=== PATIENT | female | born 1965 | race American Indian/Alaskan Native ===

== ENCOUNTER 2016-06-11 08:40 | Outpatient (CLI) | payer MEDICARE ==
--- NOTE | 2016-06-11 09:20 | Mammography Report ---
RIGHT DIGITAL DIAGNOSTIC MAMMOGRAM with CAD: 06/11/16 08:40:00 CLINICAL: Six-month followup status post benign surgical excision. COMPARISON:12/11/15 FINDINGS: Since the last exam, a surgical excision has been performed with removal of the localizer clip.Moderate scar at the surgical site. Central lucency within the scar. No mass or calcifications. IMPRESSION: Benign scar status post benign surgical excision. BI-RADS CATEGORY: 2 - - Benign RECOMMENDATION: Routine mammographic screening. ACR BI-RADS MAMMOGRAPHIC CODES: 0 = Needs additional imaging evaluation; 1 = Negative; 2 = Benign; 3 = Probably benign; 4 = Suspicious; 5 = Malignant; 6 = Known biopsy-proven malignancy COMMENT: 1. Dense breast tissue, i.e., adenosis, fibrocystic changes, etc., may obscure an underlying neoplasm. 2. Approximately 10% of cancers are not detected with mammography. 3. A negative mammography report should not delay biopsy if a clinically suspicious mass is present. COMMENT: Patient follow-up letters are generated by our [employer] application.
== END 2016-06-11 08:41 | disposition home or self-care (01) ==
LOC: SPVWC 08:40
PROVIDERS: ATTEND Surgery
DX: R92.8 Other abnormal and inconclusive findings on diagnostic imaging of breast (principal)
CPT/HCPCS: G0206-RT

== ENCOUNTER 2017-08-22 19:21 | Emergency (ER) | payer MEDICARE ==
[2017-08-22 20:39] LABS: Basophils # (Auto) 0.1 K/mm3 (0.0-0.1); Basophils % (Auto) 0.7 % (0.0-1.8); Eosinophils # (Auto) 0.2 K/mm3 (0.0-0.4); Eosinophils % (Auto) 2.1 % (0.0-4.3); Hematocrit 37.6 % (30.3-42.9); Hemoglobin 12.7 gm/dl (10.1-14.3); Lymphocytes # (Auto) 2.6 K/mm3 (1.2-5.4); Lymphocytes % (Auto) 36.5 % (13.4-35.0); Mean Corpuscular HGB Conc 34 % (30-34); Mean Corpuscular Hemoglobin 28 pg (28-32); Mean Corpuscular Volume 83 fl (79-97); Monocytes # (Auto) 0.6 K/mm3 (0.0-0.8); Monocytes % (Auto) 8.5 % (0.0-7.3); Platelet Count 195 K/mm3 (140-440); Red Blood Count 4.53 M/mm3 (3.65-5.03); Red Cell Distribution Width 12.9 % (13.2-15.2)
[2017-08-22 20:55] LABS: Albumin 4.3 g/dL (3.9-5); Calcium 9.7 mg/dL (8.4-10.2)
[2017-08-22] MEDS ORDERED: NACL 0.9% 500 ML 500 ML IV ONE (21:02)
--- NOTE | 2017-08-22 21:08 | Emergency Department Report ---
ED Altered Mental Status HPI - General Chief Complaint: Altered Mental Status Stated Complaint: BLACKOUTS Time Seen by Provider: 08/22/17 21:01 Source: family, EMS Mode of arrival: Stretcher Limitations: Language Barrier, Altered Mental Status, Physical Limitation - History of Present Illness Initial Comments: Patient brought in for evaluation with history of having had dizziness and blackout spell earlier today, approximately 8 hours prior to arrival, in which she fell, struck her face, primarily on the nose, and was blacked out for an undetermined period of time, after which she was able to get up and make her way to bed, and tried to rest, but found that she had numbness and loss of use on the left side of her body on waking, then severe pain down the entire right side of her body, along with difficulty talking. Mother is here with patient, gives much of the history, this patient initially would not give verbal history on her own, but ultimately patient was able to be coaxed into speaking and giving her own history, recounting the recent sequence of events. She has multiple chronic illnesses, including liver failure secondary to chronic hepatitis B, which has been cared for at [facility], and also reports that this is been healed through prayer. As well, patient chronic kidney disease, hypertension, and chronic pain syndrome. She takes oxycodone for her pain, but reports that she uses is only as needed, but has not had any today, but has taken her regular routine medications. She also reports that she has had a history of falling, but doesn't report that she uses a walker. There is no prior history of stroke. She has no recent constitutional symptoms, no fever chills or diaphoresis, no nausea or vomiting, but does report that she has been in process of moving residence over the past few days, has been moving her personal items, and relates that she has not been eating regularly, and probably has not been drinking a regular amount of fluids as well. MD Complaint: altered mental status - Related Data Home Medications Medication Instructions Recorded Confirmed Last Taken Omeprazole [PriLOSEC] 1 cap PO DAILY 03/28/14 01/14/16 01/16/16 05:30 Furosemide [Lasix] 20 mg PO QDAY 04/06/14 01/14/16 01/15/16 LORazepam 2 mg PO Q8HR PRN 04/06/14 01/14/16 01/15/16 Ondansetron [Zofran TAB] 4 mg PO Q8HR PRN 04/06/14 01/14/16 01/15/16 Propranolol [Inderal] 20 mg PO QDAY 04/06/14 01/14/16 01/16/16 05:30 Sertraline [Zoloft] 100 mg PO QHS 04/06/14 01/14/16 01/15/16 ALPRAZolam [Xanax TAB] 0.5 mg PO TID PRN 01/14/16 01/14/16 01/15/16 Diazepam [Valium] 10 mg PO Q8H PRN 01/14/16 01/14/16 01/15/16 Diphenoxylate/Atropine [Lomotil] 1 tab PO Q4H PRN 01/14/16 01/14/16 01/15/16 Oxycodone HCl/Acetaminophen 1 each PO Q4HR PRN 01/14/16 01/14/16 01/15/16 [Percocet 7.5/325 mg] Potassium Chloride [K-Dur] 20 meq PO QDAY 01/14/16 01/14/16 01/15/16 Previous Rx's Medication Instructions Recorded Last Taken Type Ibuprofen [Motrin 800 MG tab] 800 mg PO Q8HR PRN #20 tablet 01/16/16 Unknown Rx Ondansetron [Zofran ODT TAB] 8 mg PO Q8HR PRN #10 tab.rapdis 08/22/17 Unknown Rx Sulfamethoxazole/Trimethoprim 1 each PO BID #10 tablet 08/22/17 Unknown Rx [Bactrim DS TAB] oxyCODONE [Roxicodone TAB] 5 mg PO Q6HR PRN #12 tablet 08/22/17 Unknown Rx Allergies Allergy/AdvReac Type Severity Reaction Status Date / Time acetaminophen [From Tylenol] Allergy Swelling Verified 03/07/14 15:29 heparin Allergy Anaphylaxis Verified 03/07/14 15:29 levofloxacin [From Levaquin] Allergy Unknown Verified 03/28/14 10:57 NSAIDS (Non-Steroidal Allergy Rash Verified 01/14/16 10:03 Anti-Inflamma naproxen AdvReac Nausea Verified 01/16/16 08:34 tramadol AdvReac Headache Verified 01/16/16 08:34 ADVIL Allergy Rash Uncoded 03/28/14 10:57 ED Review of Systems ROS: Stated complaint: BLACKOUTS Other details as noted in HPI Comment: All other systems reviewed and negative Constitutional: see HPI, malaise, weakness Eyes: denies: eye pain, eye discharge, vision change ENT: denies: ear pain, throat pain Respiratory: denies: cough, shortness of breath, wheezing Cardiovascular: denies: chest pain, palpitations Endocrine: no symptoms reported Gastrointestinal: nausea. denies: vomiting, diarrhea, melena Genitourinary: denies: urgency, dysuria, discharge Musculoskeletal: back pain (chronic, no recent exacerbation), other (sharp pain down entire right side of body) Skin: denies: rash, lesions Neurological: weakness (entire left side of body,) Psychiatric: denies: anxiety, depression Hematological/Lymphatic: denies: easy bleeding, easy bruising ED Past Medical Hx - Past Medical History Hx Hypertension: Yes (FOR 4 YRS, DR. MARGOT MADDOX- PCP) Hx Liver Disease: Yes (hepatocellular carcinoma) Hx Renal Disease: Yes (Acute renal failure in 2008 04/ Drug/ETOH abuse, resolved ) Hx Seizures: No Hx Psychiatric Treatment: Yes (SUICIDAL 2013.) Hx Asthma: No Hx COPD: (Pt denies) Hx Tuberculosis: No Hx HIV: No Additional medical history: hep b, liver failiure - Surgical History Hx Cholecystectomy: Yes Hx Breast Surgery: Yes (RIGHT STEREOTACTIC BX W/ CLIP PLACEMENT 01-08-15) Additional Surgical History: 2011 WELLSTAR MONTANEZ ESOPHAGEAL SGX. - Social History Smoking Status: Never Smoker Substance Use Type: None - Medications Home Medications: Home Medications Medication Instructions Recorded Confirmed Last Taken Type Omeprazole [PriLOSEC] 1 cap PO DAILY 03/28/14 01/14/16 01/16/16 05:30 History Furosemide [Lasix] 20 mg PO QDAY 04/06/14 01/14/16 01/15/16 History LORazepam 2 mg PO Q8HR PRN 04/06/14 01/14/16 01/15/16 History Ondansetron [Zofran TAB] 4 mg PO Q8HR PRN 04/06/14 01/14/16 01/15/16 History Propranolol [Inderal] 20 mg PO QDAY 04/06/14 01/14/16 01/16/16 05:30 History Sertraline [Zoloft] 100 mg PO QHS 04/06/14 01/14/16 01/15/16 History ALPRAZolam [Xanax TAB] 0.5 mg PO TID PRN 01/14/16 01/14/16 01/15/16 History Diazepam [Valium] 10 mg PO Q8H PRN 01/14/16 01/14/16 01/15/16 History Diphenoxylate/Atropine [Lomotil] 1 tab PO Q4H PRN 01/14/16 01/14/16 01/15/16 History Oxycodone HCl/Acetaminophen 1 each PO Q4HR PRN 01/14/16 01/14/16 01/15/16 History [Percocet 7.5/325 mg] Potassium Chloride [K-Dur] 20 meq PO QDAY 01/14/16 01/14/16 01/15/16 History Ibuprofen [Motrin 800 MG tab] 800 mg PO Q8HR PRN #20 tablet 01/16/16 Unknown Rx Ondansetron [Zofran ODT TAB] 8 mg PO Q8HR PRN #10 tab.rapdis 08/22/17 Unknown Rx Sulfamethoxazole/Trimethoprim 1 each PO BID #10 tablet 08/22/17 Unknown Rx [Bactrim DS TAB] oxyCODONE [Roxicodone TAB] 5 mg PO Q6HR PRN #12 tablet 08/22/17 Unknown Rx ED Physical Exam - General Limitations: Language Barrier, Altered Mental Status, Physical Limitation General appearance: alert, in no apparent distress, other (patient initially mute, mother gives much of history, but patient does speak to me with coaxing and persistent questioning.) - Head Head exam: Present: other (tenderness mid nasal bridge, no bony defect) - Eye Eye exam: Present: PERRL, EOMI - ENT ENT exam: Present: other (nasal bridge tenderness, negligible facial swelling identified. No bony defect, occlusion is good) - Neck Neck exam: Present: normal inspection. Absent: tenderness, meningismus - Respiratory Respiratory exam: Present: normal lung sounds bilaterally - Cardiovascular Cardiovascular Exam: Present: regular rate. Absent: systolic murmur, diastolic murmur - GI/Abdominal GI/Abdominal exam: Present: soft. Absent: tenderness, guarding, rebound - Rectal Rectal exam: Present: deferred - Extremities Exam Extremities exam: Present: normal inspection - Neurological Exam Neurological exam: Present: alert, oriented X3, CN II-XII intact (speech difficulty is hesitant, and verbal, but ultimately normalizes.), motor sensory deficit (poor use of lower extremity, little effort noted on examination of left lower extremity has good floor polisher strength both upper extremities) - Psychiatric Psychiatric exam: Present: other (patient mildly anxious, somewhat somewhat somatic in complaints) - Skin Skin exam: Present: warm, dry, intact. Absent: petechiae, abrasion - Level of Consciousness 1a. Level of Consciousness: alert - LOC Questions 1b. LOC Questions: answers correctly - LOC Command 1c. LOC Commands: performs tasks correctly - Visual 3. Visual: no visual loss - Facial Palsy 4. Facial Palsy: normal symmetrical movement - Motor Arm 5b. Motor Arm Right: no drift 5a. Motor Arm Left: no drift - Motor Leg 6a. Motor Leg Left: no gravity effort (Questionable attention versus actual weakness) 6b. Motor Leg Right: no drift - Limb Ataxia 7. Limb Ataxia: absent - Sensory 8. Sensory: normal - Best Language 9. Best Language: no aphasia (Mute on initial examination, but able to talk when reassured, allowed to rest and given time to express herself.) - Dysarthria 10. Dysarthria: normal (No distinct dysarthria) - Extinction and Inattention 11. Extinction/Inattention: no abnormality ED Course Vital Signs 08/22/17 08/22/17 08/22/17 19:44 19:46 19:51 Temperature 98.5 F Pulse Rate 56 L 58 L 60 Respiratory 19 11 L 17 Rate Blood Pressure 130/79 O2 Sat by Pulse 100 Oximetry 08/22/17 08/22/17 08/22/17 20:01 20:11 20:21 Temperature Pulse Rate 60 59 L 60 Respiratory 19 17 19 Rate Blood Pressure 130/79 135/82 O2 Sat by Pulse Oximetry 08/22/17 08/22/17 08/22/17 20:31 20:40 20:51 Temperature Pulse Rate 57 L 59 L 60 Respiratory 14 18 17 Rate Blood Pressure 124/79 124/79 128/84 O2 Sat by Pulse 96 97 98 Oximetry 08/22/17 08/22/17 08/22/17 21:00 21:11 21:47 Temperature Pulse Rate 61 60 65 Respiratory 20 17 14 Rate Blood Pressure 122/77 124/79 124/79 O2 Sat by Pulse 94 Oximetry 08/22/17 08/22/17 08/22/17 21:51 22:01 22:11 Temperature Pulse Rate 56 L 61 54 L Respiratory 17 18 17 Rate Blood Pressure 127/87 127/87 122/77 O2 Sat by Pulse 97 99 Oximetry 08/22/17 08/22/17 08/22/17 22:21 22:31 22:39 Temperature 98.8 F Pulse Rate 58 L 60 Respiratory 20 15 16 Rate Blood Pressure 122/77 115/69 O2 Sat by Pulse 95 97 Oximetry 08/22/17 22:41 Temperature Pulse Rate 60 Respiratory 21 Rate Blood Pressure 115/69 O2 Sat by Pulse 98 Oximetry - Reevaluation(s) Reevaluation #1: 08/22/17 22:45 Patient reexamined after labs and CT results are back, she is showing spontaneous movement of both upper and lower extremity, reports decrease in discomfort and right side, but still complains of nausea and pain, requesting medication for headache and nausea. Reevaluation #2: 08/22/17 23:36 Patient is stable on repeat examination, she moves her leg much more easily, but has persistent pain in the left knee area, and has limited use of the leg secondary to discomfort, but has good motion in both extremities on the left side, definitely more so than when she first came in. She takes oxycodone for her chronic pain, but reports that she only has several tablets left. Her next scheduled appointment with her doctor is in the next 2 weeks. - Lab Data Result diagrams: 08/22/17 20:25 08/22/17 20:25 Lab Results 08/22/17 08/22/17 08/22/17 Range/Units 20:25 20:25 20:25 WBC 7.3 (4.5-11.0) K/mm3 RBC 4.53 (3.65-5.03) M/mm3 Hgb 12.7 (10.1-14.3) gm/dl Hct 37.6 (30.3-42.9) % MCV 83 (79-97) fl MCH 28 (28-32) pg MCHC 34 (30-34) % RDW 12.9 L (13.2-15.2) % Plt Count 195 (140-440) K/mm3 Lymph % (Auto) 36.5 H (13.4-35.0) % [place] % (Auto) 8.5 H (0.0-7.3) % Eos % (Auto) 2.1 (0.0-4.3) % Baso % (Auto) 0.7 (0.0-1.8) % Lymph # 2.6 (1.2-5.4) K/mm3 [place] # 0.6 (0.0-0.8) K/mm3 Eos # 0.2 (0.0-0.4) K/mm3 Baso # 0.1 (0.0-0.1) K/mm3 Seg Neutrophils % 52.2 (40.0-70.0) % Seg Neutrophils # 3.8 (1.8-7.7) K/mm3 PT (12.2-14.9) Sec. INR (0.87-1.13) APTT (24.2-36.6) Sec. Sodium 132 L (137-145) mmol/L Potassium 3.7 (3.6-5.0) mmol/L Chloride 90.9 L (98-107) mmol/L Carbon Dioxide 21 L (22-30) mmol/L Anion Gap 24 mmol/L BUN 24 H (7-17) mg/dL Creatinine 1.2 (0.7-1.2) mg/dL Estimated GFR 58 ml/min BUN/Creatinine Ratio 20 % Glucose 87 (65-100) mg/dL Lactic Acid (0.7-2.0) mmol/L Calcium 9.7 (8.4-10.2) mg/dL Total Bilirubin 0.60 (0.1-1.2) mg/dL AST 19 (5-40) units/L ALT 10 (7-56) units/L Alkaline Phosphatase 111 (35-129) units/L Ammonia (25-60) umol/L Total Creatine Kinase (30-135) units/L Troponin T (0.00-0.029) ng/mL Total Protein 8.6 H (6.3-8.2) g/dL Albumin 4.3 (3.9-5) g/dL Albumin/Globulin Ratio 1.0 % TSH 1.870 (0.270-4.200) mlU/mL HCG, Qual (Negative) Urine Color (Yellow) Urine Turbidity (Clear) Urine pH (5.0-7.0) Ur Specific [place] (1.003-1.030) Urine Protein (Negative) mg/dL Urine Glucose (UA) (Negative) mg/dL Urine Ketones (Negative) mg/dL Urine Blood (Negative) Urine Nitrite (Negative) Urine Bilirubin (Negative) Urine Urobilinogen (<2.0) mg/dL Ur Leukocyte Esterase (Negative) Urine WBC (Auto) (0.0-6.0) /HPF Urine RBC (Auto) (0.0-6.0) /HPF U Epithel Cells (Auto) (0-13.0) /HPF Urine Bacteria (Auto) (Negative) /HPF Urine Mucus /HPF Salicylates (2.8-20.0) mg/dL Urine Opiates Screen Urine Methadone Screen Acetaminophen (10.0-30.0) ug/mL Ur Barbiturates Screen Ur Phencyclidine Scrn Ur Amphetamines Screen U Benzodiazepines Scrn Urine Cocaine Screen U Marijuana (THC) Screen Drugs of Abuse Note Plasma/Serum Alcohol (0-0.07) % 08/22/17 08/22/17 08/22/17 Range/Units 20:25 20:25 21:19 WBC (4.5-11.0) K/mm3 RBC (3.65-5.03) M/mm3 Hgb (10.1-14.3) gm/dl Hct (30.3-42.9) % MCV (79-97) fl MCH (28-32) pg MCHC (30-34) % RDW (13.2-15.2) % Plt Count (140-440) K/mm3 Lymph % (Auto) (13.4-35.0) % [place] % (Auto) (0.0-7.3) % Eos % (Auto) (0.0-4.3) % Baso % (Auto) (0.0-1.8) % Lymph # (1.2-5.4) K/mm3 [place] # (0.0-0.8) K/mm3 Eos # (0.0-0.4) K/mm3 Baso # (0.0-0.1) K/mm3 Seg Neutrophils % (40.0-70.0) % Seg Neutrophils # (1.8-7.7) K/mm3 PT 13.8 (12.2-14.9) Sec. INR 1.01 (0.87-1.13) APTT 33.9 (24.2-36.6) Sec. Sodium (137-145) mmol/L Potassium (3.6-5.0) mmol/L Chloride (98-107) mmol/L Carbon Dioxide (22-30) mmol/L Anion Gap mmol/L BUN (7-17) mg/dL Creatinine (0.7-1.2) mg/dL Estimated GFR ml/min BUN/Creatinine Ratio % Glucose (65-100) mg/dL Lactic Acid (0.7-2.0) mmol/L Calcium (8.4-10.2) mg/dL Total Bilirubin (0.1-1.2) mg/dL AST (5-40) units/L ALT (7-56) units/L Alkaline Phosphatase (35-129) units/L Ammonia (25-60) umol/L Total Creatine Kinase (30-135) units/L Troponin T (0.00-0.029) ng/mL Total Protein (6.3-8.2) g/dL Albumin (3.9-5) g/dL Albumin/Globulin Ratio % TSH (0.270-4.200) mlU/mL HCG, Qual Negative (Negative) Urine Color (Yellow) Urine Turbidity (Clear) Urine pH (5.0-7.0) Ur Specific [place] (1.003-1.030) Urine Protein (Negative) mg/dL Urine Glucose (UA) (Negative) mg/dL Urine Ketones (Negative) mg/dL Urine Blood (Negative) Urine Nitrite (Negative) Urine Bilirubin (Negative) Urine Urobilinogen (<2.0) mg/dL Ur Leukocyte Esterase (Negative) Urine WBC (Auto) (0.0-6.0) /HPF Urine RBC (Auto) (0.0-6.0) /HPF U Epithel Cells (Auto) (0-13.0) /HPF Urine Bacteria (Auto) (Negative) /HPF Urine Mucus /HPF Salicylates (2.8-20.0) mg/dL Urine Opiates Screen Urine Methadone Screen Acetaminophen (10.0-30.0) ug/mL Ur Barbiturates Screen Ur Phencyclidine Scrn Ur Amphetamines Screen U Benzodiazepines Scrn Urine Cocaine Screen U Marijuana (THC) Screen Drugs of Abuse Note Plasma/Serum Alcohol < 0.01 (0-0.07) % 08/22/17 08/22/17 08/22/17 Range/Units 21:19 21:19 21:19 WBC (4.5-11.0) K/mm3 RBC (3.65-5.03) M/mm3 Hgb (10.1-14.3) gm/dl Hct (30.3-42.9) % MCV (79-97) fl MCH (28-32) pg MCHC (30-34) % RDW (13.2-15.2) % Plt Count (140-440) K/mm3 Lymph % (Auto) (13.4-35.0) % [place] % (Auto) (0.0-7.3) % Eos % (Auto) (0.0-4.3) % Baso % (Auto) (0.0-1.8) % Lymph # (1.2-5.4) K/mm3 [place] # (0.0-0.8) K/mm3 Eos # (0.0-0.4) K/mm3 Baso # (0.0-0.1) K/mm3 Seg Neutrophils % (40.0-70.0) % Seg Neutrophils # (1.8-7.7) K/mm3 PT (12.2-14.9) Sec. INR (0.87-1.13) APTT (24.2-36.6) Sec. Sodium (137-145) mmol/L Potassium (3.6-5.0) mmol/L Chloride (98-107) mmol/L Carbon Dioxide (22-30) mmol/L Anion Gap mmol/L BUN (7-17) mg/dL Creatinine (0.7-1.2) mg/dL Estimated GFR ml/min BUN/Creatinine Ratio % Glucose (65-100) mg/dL Lactic Acid (0.7-2.0) mmol/L Calcium (8.4-10.2) mg/dL Total Bilirubin (0.1-1.2) mg/dL AST (5-40) units/L ALT (7-56) units/L Alkaline Phosphatase (35-129) units/L Ammonia (25-60) umol/L Total Creatine Kinase 111 (30-135) units/L Troponin T < 0.010 (0.00-0.029) ng/mL Total Protein (6.3-8.2) g/dL Albumin (3.9-5) g/dL Albumin/Globulin Ratio % TSH (0.270-4.200) mlU/mL HCG, Qual (Negative) Urine Color (Yellow) Urine Turbidity (Clear) Urine pH (5.0-7.0) Ur Specific [place] (1.003-1.030) Urine Protein (Negative) mg/dL Urine Glucose (UA) (Negative) mg/dL Urine Ketones (Negative) mg/dL Urine Blood (Negative) Urine Nitrite (Negative) Urine Bilirubin (Negative) Urine Urobilinogen (<2.0) mg/dL Ur Leukocyte Esterase (Negative) Urine WBC (Auto) (0.0-6.0) /HPF Urine RBC (Auto) (0.0-6.0) /HPF U Epithel Cells (Auto) (0-13.0) /HPF Urine Bacteria (Auto) (Negative) /HPF Urine Mucus /HPF Salicylates < 0.3 L (2.8-20.0) mg/dL Urine Opiates Screen Urine Methadone Screen Acetaminophen < 5.0 L (10.0-30.0) ug/mL Ur Barbiturates Screen Ur Phencyclidine Scrn Ur Amphetamines Screen U Benzodiazepines Scrn Urine Cocaine Screen U Marijuana (THC) Screen Drugs of Abuse Note Plasma/Serum Alcohol (0-0.07) % 08/22/17 08/22/17 08/22/17 Range/Units 21:44 21:44 22:10 WBC (4.5-11.0) K/mm3 RBC (3.65-5.03) M/mm3 Hgb (10.1-14.3) gm/dl Hct (30.3-42.9) % MCV (79-97) fl MCH (28-32) pg MCHC (30-34) % RDW (13.2-15.2) % Plt Count (140-440) K/mm3 Lymph % (Auto) (13.4-35.0) % [place] % (Auto) (0.0-7.3) % Eos % (Auto) (0.0-4.3) % Baso % (Auto) (0.0-1.8) % Lymph # (1.2-5.4) K/mm3 [place] # (0.0-0.8) K/mm3 Eos # (0.0-0.4) K/mm3 Baso # (0.0-0.1) K/mm3 Seg Neutrophils % (40.0-70.0) % Seg Neutrophils # (1.8-7.7) K/mm3 PT (12.2-14.9) Sec. INR (0.87-1.13) APTT (24.2-36.6) Sec. Sodium (137-145) mmol/L Potassium (3.6-5.0) mmol/L Chloride (98-107) mmol/L Carbon Dioxide (22-30) mmol/L Anion Gap mmol/L BUN (7-17) mg/dL Creatinine (0.7-1.2) mg/dL Estimated GFR ml/min BUN/Creatinine Ratio % Glucose (65-100) mg/dL Lactic Acid 0.80 (0.7-2.0) mmol/L Calcium (8.4-10.2) mg/dL Total Bilirubin (0.1-1.2) mg/dL AST (5-40) units/L ALT (7-56) units/L Alkaline Phosphatase (35-129) units/L Ammonia (25-60) umol/L Total Creatine Kinase (30-135) units/L Troponin T (0.00-0.029) ng/mL Total Protein (6.3-8.2) g/dL Albumin (3.9-5) g/dL Albumin/Globulin Ratio % TSH (0.270-4.200) mlU/mL HCG, Qual (Negative) Urine Color Yellow (Yellow) Urine Turbidity Clear (Clear) Urine pH 5.0 (5.0-7.0) Ur Specific [place] 1.014 (1.003-1.030) Urine Protein <15 mg/dl (Negative) mg/dL Urine Glucose (UA) Neg (Negative) mg/dL Urine Ketones Neg (Negative) mg/dL Urine Blood Neg (Negative) Urine Nitrite Neg (Negative) Urine Bilirubin Neg (Negative) Urine Urobilinogen < 2.0 (<2.0) mg/dL Ur Leukocyte Esterase Lg (Negative) Urine WBC (Auto) 8.0 H (0.0-6.0) /HPF Urine RBC (Auto) 2.0 (0.0-6.0) /HPF U Epithel Cells (Auto) 1.0 (0-13.0) /HPF Urine Bacteria (Auto) 1+ (Negative) /HPF Urine Mucus Few /HPF Salicylates (2.8-20.0) mg/dL Urine Opiates Screen Presumptive negative Urine Methadone Screen Presumptive negative Acetaminophen (10.0-30.0) ug/mL Ur Barbiturates Screen Presumptive negative Ur Phencyclidine Scrn Presumptive negative Ur Amphetamines Screen Presumptive negative U Benzodiazepines Scrn Presumptive positive Urine Cocaine Screen Presumptive negative U Marijuana (THC) Screen Presumptive negative Drugs of Abuse Note Disclamer Plasma/Serum Alcohol (0-0.07) % 08/22/17 Range/Units 22:10 WBC (4.5-11.0) K/mm3 RBC (3.65-5.03) M/mm3 Hgb (10.1-14.3) gm/dl Hct (30.3-42.9) % MCV (79-97) fl MCH (28-32) pg MCHC (30-34) % RDW (13.2-15.2) % Plt Count (140-440) K/mm3 Lymph % (Auto) (13.4-35.0) % [place] % (Auto) (0.0-7.3) % Eos % (Auto) (0.0-4.3) % Baso % (Auto) (0.0-1.8) % Lymph # (1.2-5.4) K/mm3 [place] # (0.0-0.8) K/mm3 Eos # (0.0-0.4) K/mm3 Baso # (0.0-0.1) K/mm3 Seg Neutrophils % (40.0-70.0) % Seg Neutrophils # (1.8-7.7) K/mm3 PT (12.2-14.9) Sec. INR (0.87-1.13) APTT (24.2-36.6) Sec. Sodium (137-145) mmol/L Potassium (3.6-5.0) mmol/L Chloride (98-107) mmol/L Carbon Dioxide (22-30) mmol/L Anion Gap mmol/L BUN (7-17) mg/dL Creatinine (0.7-1.2) mg/dL Estimated GFR ml/min BUN/Creatinine Ratio % Glucose (65-100) mg/dL Lactic Acid (0.7-2.0) mmol/L Calcium (8.4-10.2) mg/dL Total Bilirubin (0.1-1.2) mg/dL AST (5-40) units/L ALT (7-56) units/L Alkaline Phosphatase (35-129) units/L Ammonia 54.0 (25-60) umol/L Total Creatine Kinase (30-135) units/L Troponin T (0.00-0.029) ng/mL Total Protein (6.3-8.2) g/dL Albumin (3.9-5) g/dL Albumin/Globulin Ratio % TSH (0.270-4.200) mlU/mL HCG, Qual (Negative) Urine Color (Yellow) Urine Turbidity (Clear) Urine pH (5.0-7.0) Ur Specific [place] (1.003-1.030) Urine Protein (Negative) mg/dL Urine Glucose (UA) (Negative) mg/dL Urine Ketones (Negative) mg/dL Urine Blood (Negative) Urine Nitrite (Negative) Urine Bilirubin (Negative) Urine Urobilinogen (<2.0) mg/dL Ur Leukocyte Esterase (Negative) Urine WBC (Auto) (0.0-6.0) /HPF Urine RBC (Auto) (0.0-6.0) /HPF U Epithel Cells (Auto) (0-13.0) /HPF Urine Bacteria (Auto) (Negative) /HPF Urine Mucus /HPF Salicylates (2.8-20.0) mg/dL Urine Opiates Screen Urine Methadone Screen Acetaminophen (10.0-30.0) ug/mL Ur Barbiturates Screen Ur Phencyclidine Scrn Ur Amphetamines Screen U Benzodiazepines Scrn Urine Cocaine Screen U Marijuana (THC) Screen Drugs of Abuse Note Plasma/Serum Alcohol (0-0.07) % - Radiology Data Negative facial CT scan, no bony fractures to nasal bones or facial bones. Noncontrast CT scan of the head was negative with no findings of acute stroke or intracranial injury, mass effect or midline shift. Single view portable chest x-ray shows a mild right pleural effusion with an elevated hemidiaphragm, but there are no prior chest x-rays for comparison recently, and this appears to be compatible with patient's chronic liver disease. - Medical Decision Making Patient has an unusual presentation, with multiple symptoms, which don't fit any clear-cut pattern, and I suspect that her primary presentation is a constellation of somatic symptoms. Despite this, she does have significant underlying comorbid conditions, primarily with apparent liver failure with cirrhosis, although she shows no signs of hyperammonemia, and laboratory evaluation is relatively stable today. CT scan shows no findings suggestive of acute trauma or stroke, and she has not suffered any facial trauma with no fractures of the nasal or facial bones. Does have a small right pleural effusion, with an elevated hemidiaphragm, but I suspect that these are both chronic, and in any case, these are not causing her any acute symptoms. She is improved on repeat examination and observation, and is stable for discharge home , and has appointments with her doctors within the next couple of weeks. I will give her a short course of refill of her oxycodone, and we'll also refill ondansetron, with recommendations for further refills with her doctors at time of recheck. Has a urinary tract infection, and reports that she has been treated with Bactrim before by her liver doctor, and we will treated the same here, with first dose given in the emergency department. She will be treated with 5 days afterwards. - Differential Diagnosis stroke, anxiety reaction, dysarthria, angioedema, somatic symptoms - Core Measures AMI Core Measures Followed: Yes - NEXUS Criteria Focal neurological deficit present: No Midline spinal tenderness present: No Altered level of consciousness: No Intoxication present: No Distracting injury present: No NEXUS results: C-Spine can be cleared clinically by these results. Imaging is not required. Critical Care Time: No Critical care attestation.: If time is entered above; I have spent that time in minutes in the direct care of this critically ill patient, excluding procedure time. ED Disposition Clinical Impression: Weakness of left side of body, Urinary tract infection, Cirrhosis of liver due to hepatitis B Is pt being admited?: No Does the pt Need Aspirin: No Condition: Stable Instructions: Urinary Tract Infection in Women (ED), Chronic Pain (ED) Prescriptions: Ondansetron [Zofran ODT TAB] 8 mg PO Q8HR PRN #10 tab.rapdis PRN Reason: Nausea oxyCODONE [Roxicodone TAB] 5 mg PO Q6HR PRN #12 tablet PRN Reason: Pain Sulfamethoxazole/Trimethoprim [Bactrim DS TAB] 1 each PO BID #10 tablet Referrals: MARGOT MADDOX MD [Primary Care Provider] - 3-5 Days Time of Disposition: 23:43
[2017-08-22 21:40] LABS: INR 1.01 (0.87-1.13)
[2017-08-22 21:41] LABS: Partial Thromboplastin Time 33.9 Sec. (24.2-36.6)
[2017-08-22 22:11] LABS: Amphetamine Screen,Urine PRESUMPTIVE NEGATIVE; Cannabinoid Screen,Urine PRESUMPTIVE NEGATIVE; Cocaine Screen,Urine PRESUMPTIVE NEGATIVE; Methadone Screen,Urine PRESUMPTIVE NEGATIVE; Opiate Screen,Urine PRESUMPTIVE NEGATIVE
[2017-08-22 22:25] LABS: Benzodiazepines Screen,Urine PRESUMPTIVE POSITIVE
[2017-08-22 22:29] LABS: Bacteria,Urine 1+ /HPF (Negative); Bilirubin,Urine NEG (Negative); Blood,Urine NEG (Negative); Color,Urine Yellow (Yellow); Mucus,Urine FEW /HPF; Protein,Urine <15 mg/dL mg/dL (Negative); Urobilinogen,Urine < 2.0 mg/dL (<2.0)
[2017-08-22] MEDS ORDERED: ROXICODONE PO ONE (22:37)
[2017-08-22] MEDS ORDERED: ZOFRAN ODT PO ONE (22:38)
[2017-08-22 22:54] VITALS: BP 115/69
[2017-08-22] MEDS ORDERED: BACTRIM DS PO ONE (23:44)
--- NOTE | 2017-08-24 14:28 | Cat Scan Report ---
FINAL REPORT EXAM: CT FACIAL BONES WO CON HISTORY: fall, struck face, face and nasal pain TECHNIQUE: Maxillofacial CT with coronal and sagittal multiplanar reconstruction PRIORS: None. FINDINGS: The nasal bone is intact. The zygomatic arches are within normal limits. No evidence of fluid level within the paranasal sinuses. No intraorbital abnormalities seen. No facial fractures are identified. The TM joints and the mandible are within normal limits. IMPRESSION: Negative. No evidence of acute facial bone fracture.
--- NOTE | 2017-08-24 14:28 | Cat Scan Report ---
FINAL REPORT EXAM: CT HEAD/BRAIN WO CON HISTORY: Altered Mental Status TECHNIQUE: CT head without contrast PRIORS: None. FINDINGS: No acute intra-axial or extra-axial hemorrhage is identified. There is no evidence of midline shift or mass effect. The ventricles and sulci are within normal limits. Meyer-white matter differentiation is intact. No acute parenchymal abnormalities seen. Bony calvarium is grossly intact. Visualized portions of the mastoids and paranasal sinuses are unremarkable. IMPRESSION: Negative CT head
--- NOTE | 2017-08-24 14:28 | XRay Report ---
FINAL REPORT EXAM: XR CHEST 1V AP HISTORY: Altered Mental Status TECHNIQUE: Chest single AP PRIORS: None. FINDINGS: Right hemidiaphragm is moderately elevated. There is blunting of the right costophrenic angle. Cardiac silhouette is within normal limits. Pulmonary vasculature is unremarkable. IMPRESSION: Small right pleural effusion. Mild elevation of the right hemidiaphragm
== END 2017-08-23 00:26 ==
LOC: ED 19:21
DX: N39.0 Urinary tract infection, site not specified (principal); K74.69 Other cirrhosis of liver; R53.1 Weakness; I10 Essential (primary) hypertension; K72.90 Hepatic failure, unspecified without coma; Z90.49 Acquired absence of other specified parts of digestive tract; Z88.8 Allergy status to other drugs, medicaments and biological substances; Z88.1 Allergy status to other antibiotic agents
CPT/HCPCS: 36415; 70450; 70486; 71045; 80053; 80307; 81001; 82140; 82550; 84443; 84484; 84703; 85025; 85610; 85730; 93005; 93010; 96360; 99285; G0480; J7040; 80320; Q0162

== ENCOUNTER 2017-12-16 06:22 | Observation (INO) | payer MEDICARE ==
[2017-12-16] MEDS ORDERED: DIPRIVAN 10 MG/ML IV ONE (07:19)
[2017-12-16] MEDS ORDERED: XYLOCAINE MPF 2% ONE (07:19)
[2017-12-16] MEDS ORDERED: ZOFRAN ONE (07:19)
[2017-12-16] MEDS ORDERED: DECADRON ONE (07:19)
[2017-12-16] MEDS ORDERED: DILAUDID ONE ×2 (07:24→15:20)
[2017-12-16] MEDS ORDERED: ZOFRAN IV PRN (07:53)
[2017-12-16] MEDS ORDERED: DEMEROL IV PRN (07:53)
[2017-12-16] MEDS ORDERED: TORADOL IV PRN (07:53)
--- NOTE | 2017-12-16 07:55 | Anesthesia Day of Surgery ---
Anesthesia Day of Surgery - Day of Surgery Patient Examined: Yes Patient H&P Reviewed: Yes Patient is NPO: Yes
--- NOTE | 2017-12-16 07:55 | Anesthesia Consultation ---
Anesthesia Consult and Med Hx Date of service: 12/16/17 - Airway Anesthetic Teeth Evaluation: Good ROM Head & Neck: Adequate Mental/Hyoid Distance: Adequate Mallampati Class: Class II Intubation Access Assessment: Probably Good - Pulmonary Exam CTA: Yes - Cardiac Exam Cardiac Exam: RRR - Pre-Operative Health Status ASA Pre-Surgery Classification: ASA3 Proposed Anesthetic Plan: General - Pulmonary Hx Smoking: Yes (CIGARETTES , 2 CIGS PD X 24 YRS, quit 4 yrs ago) Hx Asthma: No SOB: Yes (WITH EXERTION) COPD: (Pt denies) Hx Pneumonia: Yes (2011) Hx Sleep Apnea: No - Cardiovascular System Hx Hypertension: Yes (SINCE 2012, DR. MARGOT MADDOX- PCP) - Central Nervous System Hx Neuromuscular Disorder: No Hx Seizures: No CVA: No Hx Back Pain: Yes Hx Psychiatric Problems: Yes - Gastrointestinal Hx Gastroesophageal Reflux Disease: Yes (With chronic nausea) - Endocrine Hx Renal Disease: Yes (Acute renal failure in 2008 2/2 Drug/ETOH abuse, resolved ) Hx Cirrhosis: Yes Hx Liver Disease: Yes (hepatocellular carcinoma) Hx Non-Insulin Dependent Diabetes: No Hx Thyroid Disease: No - Other Systems Hx Alcohol Use: Yes Hx Substance Use: Yes (h/o cocaine use, last use 2011) Hx Cancer: (ESOPHAGEAL IN 2011 AND LIVER IN 2011) Hx Obesity: No
[2017-12-16] MEDS ORDERED: PEPCID IV NR (08:00)
[2017-12-16] MEDS ORDERED: VERSED IV NR (08:00)
[2017-12-16] MEDS ORDERED: NEURONTIN PO NR (08:00)
[2017-12-16] MEDS ORDERED: LACTATED RINGERS 1,000 ML IV SCH ×2 (08:00)
[2017-12-16] MEDS ORDERED: TRANSDERM-SCOP TD NR (08:00)
[2017-12-16] MEDS ORDERED: ADRENALIN ONE (08:42)
[2017-12-16] MEDS ORDERED: NACL 0.9% 1000 ML 1,000 ML ONE ×2 (08:42→13:14)
[2017-12-16] MEDS ORDERED: ANCEF/STERILE WATER 2 GM/20 ML IV NR (09:00)
[2017-12-16] MEDS ORDERED: ADRENALIN IV ONE (09:12)
[2017-12-16] MEDS ORDERED: ANCEF ONE (12:45)
[2017-12-16] MEDS: DILAUDID IV PRN ×5 (13:54→20:56)
[2017-12-16] MEDS ORDERED: BENADRYL ONE (14:02)
--- NOTE | 2017-12-16 14:03 | Operative Report ---
Operative Report Operative Report: Preoperative Diagnosis: Symptomatic bilateral macromastia; marked asymmetry Post Operative Diagnosis: Same Procedure: Bilateral breast reduction Surgeon: Dr. Carmen Brown Flake Drier: None Specimens: Right and left breast tissue, excised EBL: minimal Procedure: After review of pertinent history and physical exam findings the patient was brought into the operating room and placed supine on the OR table. After induction of adequate general endotracheal anesthesia the patient's chest was prepped and draped in the usual sterile surgical fashion. To begin, collins were refreshed and measurements double checked and we reduced the right breast as follows: A 9cm inferior pedicle was outlined and de-epithelialized save the nipple and areola complex, which was measured out using a 4.5cm diameter and left completely attached to the inferior pedicle. After this, following a Johnson pattern, skin incisions were made to elevate breast flaps superiorly and excise excess tissue on the medial and lateral aspect of the pedicle. Hemostasis was maintained with electrocautery. Saline solution was then used to irrigate the breast tissue and, satisfied with hemostasis and volume, we began to a 3- layered closure using 2-0 Monocryl and 3-0 Monoderm sutures. The same procedure was performed on the left side, with tissue re-arrangement and excision based on an inferior pedicle being performed to preserve the nipple areolar complex and as much breast tissue as possible for symmetry. A total of 560g was removed from the right breast; 980g wer removed from the left. Once all incisions were closed, they were sealed with skin affix glue and dressed with ABD pads. This was followed by placement of a surgical bra. The patient was then awakened from general anesthesia and transferred to PACU in stable condition. There were no complications. All sponge needle and instrument counts were correct at the end of the case.
[2017-12-16] MEDS: NORMODYNE IV PRN ×2 (14:33→14:42)
[2017-12-16] MEDS ORDERED: BENADRYL IV PRN (14:35)
[2017-12-16] MEDS ORDERED: APRESOLINE IV PRN (14:57)
[2017-12-16] MEDS ORDERED: APRESOLINE ONE (15:00)
--- NOTE | 2017-12-16 15:27 | Post Anesthesia Evaluation ---
- Post Anesthesia Evaluation Patient Participated: Yes Airway Patent: Yes Stable Respiratory Function: Yes Nausea/Vomiting: No Temp > 96.8F: Yes Pain Manageable: Yes Adequeate Hydration: Yes Anesthesia Complications: No
[2017-12-16] MEDS ORDERED: DILAUDID IV PRN (17:56)
[2017-12-16] MEDS ORDERED: NARCAN 0.4 MG/1 ML IV PRN (17:56)
[2017-12-16] MEDS ORDERED: ULTRAM PO PRN (17:56)
[2017-12-16] MEDS: ZOFRAN IV PRN ×2 (18:35→21:40)
[2017-12-16] MEDS: ROXICODONE PO PRN (18:35)
[2017-12-16] MEDS: INDERAL PO SCH (21:04)
[2017-12-17] MEDS: ROXICODONE PO PRN ×2 (01:15→18:04)
[2017-12-17] MEDS: BENADRYL IV PRN ×4 (01:27→18:05)
[2017-12-17] MEDS: DILAUDID IV PRN ×3 (06:08→15:40)
[2017-12-17] MEDS: ZOFRAN IV PRN ×2 (06:19→15:41)
[2017-12-17 09:31] VITALS: BP 125/78
[2017-12-17] MEDS ORDERED: PROTONIX PO SCH (10:00)
[2017-12-17] MEDS ORDERED: LASIX PO SCH (10:00)
[2017-12-17] MEDS ORDERED: ZOLOFT PO SCH (10:00)
[2017-12-17] MEDS: INDERAL PO SCH (12:05)
== END 2017-12-17 18:15 | disposition home or self-care (01) ==
LOC: OR 06:22 → OB 14:06
PROVIDERS: ADMIT Plastic Surgery; ATTEND Plastic Surgery
DX: N62 Hypertrophy of breast (principal); I10 Essential (primary) hypertension; K21.9 Gastro-esophageal reflux disease without esophagitis; K74.60 Unspecified cirrhosis of liver; C22.0 Liver cell carcinoma; K72.90 Hepatic failure, unspecified without coma; F41.9 Anxiety disorder, unspecified; B18.2 Chronic viral hepatitis C; Z72.89 Other problems related to lifestyle; Z87.891 Personal history of nicotine dependence
CPT/HCPCS: 19318; 88305; 96374; 96375; 96376; G0378; J0171; J0360; J0690; J1100; J1170; J1200; J2175; J2250; J2405; J2704; J7030; J7120

== ENCOUNTER 2018-08-18 12:43 | Emergency (ER) | payer MEDICARE ==
--- NOTE | 2018-08-18 15:24 | Emergency Department Report ---
ED General Adult HPI - General Chief complaint: Overdose Stated complaint: SI Time Seen by Provider: 08/18/18 14:06 Source: EMS Mode of arrival: Stretcher Limitations: Altered Mental Status - History of Present Illness Initial comments: The patient presents to the emergency department after taking an unknown amount of Xanax. Patient denies wanting to harm herself states she took the Xanax because she was being teased to home. Patient denies any homicidal or suicidal ideation.Patient states she took the xanax 3 hours before arrival -: Sudden Severity scale (0 -10): 0 Improves with: none Worsens with: none Associated Symptoms: denies other symptoms Treatments Prior to Arrival: none - Related Data Home Medications Medication Instructions Recorded Confirmed Last Taken ALPRAZolam [Xanax TAB] 2 mg PO QHS 12/09/17 12/16/17 12/15/17 20:00 Diphenoxylate/Atropine [Lomotil] 1 tab PO Q4H PRN 12/09/17 12/09/17 Unknown Omeprazole 40 mg PO DAILY 12/09/17 12/16/17 12/16/17 04:00 Ondansetron [Zofran TAB] 4 mg PO Q8HR PRN 12/09/17 12/09/17 Unknown Propranolol HCl 20 mg PO DAILY 12/09/17 12/16/17 12/16/17 04:00 Sertraline [Zoloft] 100 mg PO QDAY 12/09/17 12/16/17 12/15/17 09:00 oxyCODONE /ACETAMINOPHEN [Percocet 1 tab PO Q6HR PRN 12/09/17 12/09/17 Unknown 5/325] Allergies Allergy/AdvReac Type Severity Reaction Status Date / Time acetaminophen [From Tylenol] Allergy Swelling Verified 12/09/17 15:10 heparin Allergy Anaphylaxis Verified 12/09/17 15:10 levofloxacin [From Levaquin] Allergy Unknown Verified 12/09/17 15:10 NSAIDS (Non-Steroidal Allergy Rash Verified 12/09/17 15:10 Anti-Inflamma naproxen AdvReac Nausea Verified 12/09/17 15:10 tramadol AdvReac Headache Verified 12/09/17 15:10 ADVIL Allergy Rash Uncoded 12/09/17 15:10 ED Review of Systems ROS: Stated complaint: SI Other details as noted in HPI Comment: All other systems reviewed and negative Constitutional: denies: chills, fever Eyes: denies: eye pain, eye discharge, vision change ENT: denies: ear pain, throat pain Respiratory: denies: cough, shortness of breath, wheezing Cardiovascular: denies: chest pain, palpitations Endocrine: no symptoms reported Gastrointestinal: denies: abdominal pain, nausea, diarrhea Genitourinary: denies: urgency, dysuria, discharge Musculoskeletal: denies: back pain, joint swelling, arthralgia Skin: denies: rash, lesions Neurological: denies: headache, weakness, paresthesias Psychiatric: denies: anxiety, depression Hematological/Lymphatic: denies: easy bleeding, easy bruising ED Past Medical Hx - Past Medical History Previous Medical History?: Yes Hx Hypertension: Yes (SINCE 2012, DR. MARGOT MADDOX- PCP) Hx Diabetes: No Hx Liver Disease: Yes (hepatocellular carcinoma) Hx Renal Disease: Yes (Acute renal failure in 04/24 Drug/ETOH abuse, resolved) Hx Seizures: No Hx Psychiatric Treatment: Yes (SUICIDAL 2012.) Hx Asthma: No Hx COPD: No (Pt denies) Hx Tuberculosis: No Hx HIV: No Additional medical history: hep b, liver failiure - Surgical History Past Surgical History?: Yes Hx Cholecystectomy: Yes Hx Breast Surgery: Yes (RIGHT STEREOTACTIC BX W/ CLIP PLACEMENT 01-08-15) Additional Surgical History: 2011 [facility] MONTANEZ ESOPHAGEAL SGX. - Social History Smoking Status: Never Smoker - Medications Home Medications: Home Medications Medication Instructions Recorded Confirmed Last Taken Type ALPRAZolam [Xanax TAB] 2 mg PO QHS 12/09/17 12/16/17 12/15/17 20:00 History Diphenoxylate/Atropine [Lomotil] 1 tab PO Q4H PRN 12/09/17 12/09/17 Unknown History Omeprazole 40 mg PO DAILY 12/09/17 12/16/17 12/16/17 04:00 History Ondansetron [Zofran TAB] 4 mg PO Q8HR PRN 12/09/17 12/09/17 Unknown History Propranolol HCl 20 mg PO DAILY 12/09/17 12/16/17 12/16/17 04:00 History Sertraline [Zoloft] 100 mg PO QDAY 12/09/17 12/16/17 12/15/17 09:00 History oxyCODONE /ACETAMINOPHEN [Percocet 1 tab PO Q6HR PRN 12/09/17 12/09/17 Unknown History ] ED Physical Exam - General Limitations: Altered Mental Status General appearance: in no apparent distress, other (somnolent but easily arousable with verbal stimuli) - Head Head exam: Present: atraumatic, normocephalic - Eye Eye exam: Present: normal appearance. Absent: PERRL, EOMI - ENT ENT exam: Present: mucous membranes moist - Neck Neck exam: Present: normal inspection - Respiratory Respiratory exam: Present: normal lung sounds bilaterally. Absent: respiratory distress - Cardiovascular Cardiovascular Exam: Present: regular rate, normal rhythm. Absent: systolic murmur, diastolic murmur, rubs, gallop - GI/Abdominal GI/Abdominal exam: Present: soft, normal bowel sounds. Absent: distended, tenderness - Extremities Exam Extremities exam: Present: normal inspection - Back Exam Back exam: Present: normal inspection - Neurological Exam Neurological exam: Present: alert, oriented X3, CN II-XII intact. Absent: motor sensory deficit - Psychiatric Psychiatric exam: Present: normal affect, normal mood - Skin Skin exam: Present: warm, dry, intact, normal color. Absent: rash ED Course Vital Signs 08/18/18 14:09 Temperature 97.8 F Pulse Rate 70 Respiratory 16 Rate Blood Pressure 113/67 [Left] O2 Sat by Pulse 96 Oximetry ED Medical Decision Making - Lab Data Result diagrams: 08/18/18 15:41 08/18/18 17:46 Lab Results 08/18/18 08/18/18 08/18/18 Range/Units 15:06 15:28 15:28 WBC (4.5-11.0) K/mm3 RBC (3.65-5.03) M/mm3 Hgb (10.1-14.3) gm/dl Hct (30.3-42.9) % MCV (79-97) fl MCH (28-32) pg MCHC (30-34) % RDW (13.2-15.2) % Plt Count (140-440) K/mm3 Lymph % (Auto) (13.4-35.0) % Gove % (Auto) (0.0-7.3) % Eos % (Auto) (0.0-4.3) % Baso % (Auto) (0.0-1.8) % Lymph # (1.2-5.4) K/mm3 Gove # (0.0-0.8) K/mm3 Eos # (0.0-0.4) K/mm3 Baso # (0.0-0.1) K/mm3 Seg Neutrophils % (40.0-70.0) % Seg Neutrophils # (1.8-7.7) K/mm3 PT (12.2-14.9) Sec. INR (0.87-1.13) APTT (24.2-36.6) Sec. Sodium (137-145) mmol/L Potassium (3.6-5.0) mmol/L Chloride (98-107) mmol/L Carbon Dioxide (22-30) mmol/L Anion Gap mmol/L BUN (7-17) mg/dL Creatinine (0.7-1.2) mg/dL Estimated GFR ml/min BUN/Creatinine Ratio % Glucose (65-100) mg/dL Calcium (8.4-10.2) mg/dL Total Bilirubin (0.1-1.2) mg/dL AST (5-40) units/L ALT (7-56) units/L Alkaline Phosphatase (35-129) units/L Albumin (3.9-5) g/dL Urine Color Straw (Yellow) Urine Turbidity Clear (Clear) Urine pH 6.0 (5.0-7.0) Ur Specific [place] 1.003 (1.003-1.030) Urine Protein <15 mg/dl (Negative) mg/dL Urine Glucose (UA) Neg (Negative) mg/dL Urine Ketones Neg (Negative) mg/dL Urine Blood Sm (Negative) Urine Nitrite Neg (Negative) Urine Bilirubin Neg (Negative) Urine Urobilinogen < 2.0 (<2.0) mg/dL Ur Leukocyte Esterase Lg (Negative) Urine WBC (Auto) 5.0 (0.0-6.0) /HPF Urine RBC (Auto) 3.0 (0.0-6.0) /HPF U Epithel Cells (Auto) < 1.0 (0-13.0) /HPF Urine Bacteria (Auto) 1+ (Negative) /HPF Salicylates (2.8-20.0) mg/dL Urine Opiates Screen Presumptive negative Urine Methadone Screen Presumptive negative Acetaminophen < 5.0 L (10.0-30.0) ug/mL Ur Barbiturates Screen Presumptive negative Ur Phencyclidine Scrn Presumptive negative Ur Amphetamines Screen Presumptive negative U Benzodiazepines Scrn Presumptive positive Urine Cocaine Screen Presumptive negative U Marijuana (THC) Screen Presumptive negative Drugs of Abuse Note Disclamer 08/18/18 08/18/18 08/18/18 Range/Units 15:41 17:46 17:46 WBC 3.1 L (4.5-11.0) K/mm3 RBC 3.53 L (3.65-5.03) M/mm3 Hgb 10.3 (10.1-14.3) gm/dl Hct 31.1 (30.3-42.9) % MCV 88 (79-97) fl MCH 29 (28-32) pg MCHC 33 (30-34) % RDW 15.4 H (13.2-15.2) % Plt Count 130 L (140-440) K/mm3 Lymph % (Auto) 33.0 (13.4-35.0) % Gove % (Auto) 6.3 (0.0-7.3) % Eos % (Auto) 2.1 (0.0-4.3) % Baso % (Auto) 0.8 (0.0-1.8) % Lymph # 1.0 L (1.2-5.4) K/mm3 Gove # 0.2 (0.0-0.8) K/mm3 Eos # 0.1 (0.0-0.4) K/mm3 Baso # 0.0 (0.0-0.1) K/mm3 Seg Neutrophils % 57.8 (40.0-70.0) % Seg Neutrophils # 1.8 (1.8-7.7) K/mm3 PT 15.2 H (12.2-14.9) Sec. INR 1.13 (0.87-1.13) APTT 28.9 (24.2-36.6) Sec. Sodium 146 H (137-145) mmol/L Potassium 3.9 (3.6-5.0) mmol/L Chloride 110.3 H (98-107) mmol/L Carbon Dioxide 26 (22-30) mmol/L Anion Gap 14 mmol/L BUN 9 (7-17) mg/dL Creatinine 0.9 (0.7-1.2) mg/dL Estimated GFR > 60 ml/min BUN/Creatinine Ratio 10 % Glucose 103 H (65-100) mg/dL Calcium 9.2 (8.4-10.2) mg/dL Total Bilirubin 0.60 (0.1-1.2) mg/dL AST 21 (5-40) units/L ALT 10 (7-56) units/L Alkaline Phosphatase 100 (35-129) units/L Albumin 3.9 (3.9-5) g/dL Urine Color (Yellow) Urine Turbidity (Clear) Urine pH (5.0-7.0) Ur Specific [place] (1.003-1.030) Urine Protein (Negative) mg/dL Urine Glucose (UA) (Negative) mg/dL Urine Ketones (Negative) mg/dL Urine Blood (Negative) Urine Nitrite (Negative) Urine Bilirubin (Negative) Urine Urobilinogen (<2.0) mg/dL Ur Leukocyte Esterase (Negative) Urine WBC (Auto) (0.0-6.0) /HPF Urine RBC (Auto) (0.0-6.0) /HPF U Epithel Cells (Auto) (0-13.0) /HPF Urine Bacteria (Auto) (Negative) /HPF Salicylates (2.8-20.0) mg/dL Urine Opiates Screen Urine Methadone Screen Acetaminophen (10.0-30.0) ug/mL Ur Barbiturates Screen Ur Phencyclidine Scrn Ur Amphetamines Screen U Benzodiazepines Scrn Urine Cocaine Screen U Marijuana (THC) Screen Drugs of Abuse Note 08/18/18 Range/Units 17:46 WBC (4.5-11.0) K/mm3 RBC (3.65-5.03) M/mm3 Hgb (10.1-14.3) gm/dl Hct (30.3-42.9) % MCV (79-97) fl MCH (28-32) pg MCHC (30-34) % RDW (13.2-15.2) % Plt Count (140-440) K/mm3 Lymph % (Auto) (13.4-35.0) % Gove % (Auto) (0.0-7.3) % Eos % (Auto) (0.0-4.3) % Baso % (Auto) (0.0-1.8) % Lymph # (1.2-5.4) K/mm3 Gove # (0.0-0.8) K/mm3 Eos # (0.0-0.4) K/mm3 Baso # (0.0-0.1) K/mm3 Seg Neutrophils % (40.0-70.0) % Seg Neutrophils # (1.8-7.7) K/mm3 PT (12.2-14.9) Sec. INR (0.87-1.13) APTT (24.2-36.6) Sec. Sodium (137-145) mmol/L Potassium (3.6-5.0) mmol/L Chloride (98-107) mmol/L Carbon Dioxide (22-30) mmol/L Anion Gap mmol/L BUN (7-17) mg/dL Creatinine (0.7-1.2) mg/dL Estimated GFR ml/min BUN/Creatinine Ratio % Glucose (65-100) mg/dL Calcium (8.4-10.2) mg/dL Total Bilirubin (0.1-1.2) mg/dL AST (5-40) units/L ALT (7-56) units/L Alkaline Phosphatase (35-129) units/L Albumin (3.9-5) g/dL Urine Color (Yellow) Urine Turbidity (Clear) Urine pH (5.0-7.0) Ur Specific [place] (1.003-1.030) Urine Protein (Negative) mg/dL Urine Glucose (UA) (Negative) mg/dL Urine Ketones (Negative) mg/dL Urine Blood (Negative) Urine Nitrite (Negative) Urine Bilirubin (Negative) Urine Urobilinogen (<2.0) mg/dL Ur Leukocyte Esterase (Negative) Urine WBC (Auto) (0.0-6.0) /HPF Urine RBC (Auto) (0.0-6.0) /HPF U Epithel Cells (Auto) (0-13.0) /HPF Urine Bacteria (Auto) (Negative) /HPF Salicylates < 0.3 L (2.8-20.0) mg/dL Urine Opiates Screen Urine Methadone Screen Acetaminophen (10.0-30.0) ug/mL Ur Barbiturates Screen Ur Phencyclidine Scrn Ur Amphetamines Screen U Benzodiazepines Scrn Urine Cocaine Screen U Marijuana (THC) Screen Drugs of Abuse Note - Medical Decision Making poison control contacted and suggested supportive therapy will discharge upon the patient waking up Discussed results and plan of care with patient Critical care attestation.: If time is entered above; I have spent that time in minutes in the direct care of this critically ill patient, excluding procedure time. ED Disposition Clinical Impression: Misuse of prescription only drugs Disposition: TO HOME OR SELFCARE Is pt being admited?: No Does the pt Need Aspirin: No Condition: Stable Additional Instructions: return if worse Referrals: PRIMARY CARE, [Referring] - 3-5 Days [facility] [Provider Group] - 3-5 Days [facility] [Provider Group] - 3-5 Days Time of Disposition: 19:12
[2018-08-18 15:55] LABS: Basophils % (Auto) 0.8 % (0.0-1.8); Eosinophils # (Auto) 0.1 K/mm3 (0.0-0.4); Eosinophils % (Auto) 2.1 % (0.0-4.3); Hematocrit 31.1 % (30.3-42.9); Hemoglobin 10.3 gm/dl (10.1-14.3); Mean Corpuscular HGB Conc 33 % (30-34); Mean Corpuscular Volume 88 fl (79-97); Monocytes # (Auto) 0.2 K/mm3 (0.0-0.8); Monocytes % (Auto) 6.3 % (0.0-7.3); Platelet Count 130 K/mm3 (140-440); Red Blood Count 3.53 M/mm3 (3.65-5.03); Red Cell Distribution Width 15.4 % (13.2-15.2)
[2018-08-18 15:56] LABS: Bacteria,Urine 1+ /HPF (Negative); Bilirubin,Urine NEG (Negative); Blood,Urine SM (Negative); Color,Urine Straw (Yellow); Protein,Urine <15 mg/dL mg/dL (Negative); Urobilinogen,Urine < 2.0 mg/dL (<2.0)
--- NOTE | 2018-08-18 16:16 | Cat Scan Report ---
PROCEDURE: CT HEAD/BRAIN WO CON TECHNIQUE: Computerized tomography of the head was performed without contrast material. CT DOSE LENGTH PRODUCT: 805.4 mGy-cm. HISTORY: head injury COMPARISONS: CT head August 22, 2017. FINDINGS: There is no evidence for acute ischemia. There is no hemorrhage. There is no midline shift. There is no hydrocephalus. There is no mass. Age appropriate brown-white matter attenuation is noted. There is no calvarial fracture. The temporal bones demonstrate aerated mastoid air cells. The middle ears appear unremarkable. Paranasal sinuses are unremarkable. Globes are intact. IMPRESSION: * No acute intracranial findings. This document is electronically signed by Chucho Carcamo MD., Aug 18 2018 04:14:35 PM ET
[2018-08-18 16:41] LABS: Amphetamine Screen,Urine PRESUMPTIVE NEGATIVE; Cannabinoid Screen,Urine PRESUMPTIVE NEGATIVE; Cocaine Screen,Urine PRESUMPTIVE NEGATIVE; Methadone Screen,Urine PRESUMPTIVE NEGATIVE; Opiate Screen,Urine PRESUMPTIVE NEGATIVE
[2018-08-18 17:00] LABS: Benzodiazepines Screen,Urine PRESUMPTIVE POSITIVE
[2018-08-18] MEDS ORDERED: ZOFRAN ONE (17:19)
[2018-08-18] MEDS ORDERED: ZOFRAN IV ONE (17:20)
[2018-08-18 18:34] LABS: INR 1.13 (0.87-1.13)
[2018-08-18 18:35] LABS: Partial Thromboplastin Time 28.9 Sec. (24.2-36.6)
[2018-08-18 18:58] LABS: Alanine Aminotransferase 10 units/L (7-56); Albumin 3.9 g/dL (3.9-5); BUN/Creatinine Ratio 10; Blood Urea Nitrogen 9 mg/dL (7-17); Calcium 9.2 mg/dL (8.4-10.2); Hemolysis Index 3
[2018-08-18 20:50] VITALS: BP 116/62
== END 2018-08-18 20:48 | disposition home or self-care (01) ==
LOC: ED 12:43 → EEVIPCON 12:43 → ED 20:48
DX: S09.90XA Unspecified injury of head, initial encounter (principal); F19.90 Other psychoactive substance use, unspecified, uncomplicated; I10 Essential (primary) hypertension; Z90.49 Acquired absence of other specified parts of digestive tract; X58.XXXA Exposure to other specified factors, initial encounter; Y93.89 Activity, other specified; Y92.89 Other specified places as the place of occurrence of the external cause; Y99.8 Other external cause status
CPT/HCPCS: 36415; 70450; 80053; 80307; 81001; 85025; 85610; 85730; 93005; 93010; 96374; 99284; G0480; J2405; 80320

== ENCOUNTER 2018-10-01 08:47 | Emergency (ER) | payer MEDICARE ==
[2018-10-01 08:53] VITALS: BP 155/95
--- NOTE | 2018-10-01 10:09 | Emergency Department Report ---
Chief Complaint: Eye Problems Stated Complaint: EYE PAIN Time Seen by Provider: 10/01/18 10:04 - HPI History of Present Illness: 23-year-old female comes in for port she was having problems with loss of vision in her left eye this morning double vision in her right. Patient pushes diagnosis scratch on Thursday she's been using the eyedrops with no improvement. Patient denies any fever or chills. Does admit to pain. - ROS Review of Systems: Left eye vision loss right eye double vision, both eyes are red - Exam Vital Signs: Vital Signs 10/01/18 08:52 Temperature 98.9 F Pulse Rate 70 Respiratory 20 Rate Blood Pressure 155/95 [Right] O2 Sat by Pulse 99 Oximetry Physical Exam: This is alert and oriented 3 no acute distress. Both eyes are injected of the sclera. Mild puffiness to the lower lid. MSE screening note: Focused history and physical exam performed. Due to findings the following was ordered: Discussed the patient she can do a walking with Dr. David Brandon budget counselor information was given to patient on discharge summary as well as 2 other budget counselor. Patient reports that she will go there first today. Patient discussed with doctor:: [facility] ED Disposition for MSE Disposition: DC-01 TO HOME OR SELFCARE Is pt being admited?: No Does the pt Need Aspirin: No Condition: Stable Referrals: MARGOT MADDOX MD [Primary Care Provider] - 3-5 Days DAVID BRANDON MD [Staff Physician] - 3-5 Days [facility] [Provider Group] - 3-5 Days [facility] [Provider Group] - 3-5 Days
== END 2018-10-01 10:14 | disposition home or self-care (01) ==
LOC: ED 08:47
DX: H54.7 Unspecified visual loss (principal); H53.2 Diplopia; Z88.6 Allergy status to analgesic agent; Z88.8 Allergy status to other drugs, medicaments and biological substances; Z88.1 Allergy status to other antibiotic agents
CPT/HCPCS: 99282

== ENCOUNTER 2020-10-02 13:58 | Emergency (ER) | payer MEDICARE ==
[2020-10-02 15:24] LABS: Basophils % (Auto) 1.2 % (0.0-1.8); Eosinophils # (Auto) 0.1 K/mm3 (0.0-0.4); Eosinophils % (Auto) 2.3 % (0.0-4.3); Hematocrit 32.9 % (30.3-42.9); Hemoglobin 11.1 gm/dl (10.1-14.3); Lymphocytes # (Auto) 1.5 K/mm3 (1.2-5.4); Lymphocytes % (Auto) 48.5 % (13.4-35.0); Mean Corpuscular HGB Conc 34 % (30-34); Mean Corpuscular Volume 98 fl (79-97); Monocytes # (Auto) 0.2 K/mm3 (0.0-0.8); Monocytes % (Auto) 7.8 % (0.0-7.3); Platelet Count 147 K/mm3 (140-440); Red Blood Count 3.36 M/mm3 (3.65-5.03); Red Cell Distribution Width 14.8 % (13.2-15.2)
[2020-10-02 15:40] LABS: Alanine Aminotransferase 26 units/L (7-56); Albumin 4.2 g/dL (3.9-5); BUN/Creatinine Ratio 18; Blood Urea Nitrogen 16 mg/dL (7-17); Calcium 9.2 mg/dL (8.4-10.2); Hemolysis Index 31
--- NOTE | 2020-10-02 16:01 | Cat Scan Report ---
CT cervical spine wo con INDICATION / CLINICAL INFORMATION: 55 years Female; midline c spine ttp. TECHNIQUE: Axial CT images of the cervical spine were obtained. Sagittal and coronal reformatted images were pr oduced. All CT scans at this location are performed using CT dose reduction for ALARA by means of aut omated exposure control. COMPARISON: None. FINDINGS: POST-SURGICAL CHANGES: None. ALIGNMENT: There is milder curvature of the cervical spine without significant spondylolisthesis at. VERTEBRAE: There are mild endplate changes anteriorly at C5-6 with mild anterior osteophytic formatio n. There is no clear CT evidence of acute fracture involving the cervical spine at. INTRAVERTEBRAL DISCS: There appears be right paracentral disc protrusion at C4-5 which appears to sli ghtly flatten the right ventral cord at. There is also encroachment on the right lateral recess. There appears be slight disc bulge at C5-6 which effaces the ventral subarachnoid space. There is mil d left foraminal narrowing. There is mild right foraminal narrowing at C6-7 and at C7-T1. PARASPINAL SOFT TISSUES: No prevertebral soft tissue fluid collections are identified. ADDITIONAL FINDINGS: There is a 7 mm sclerotic focus projected within the T2 vertebral body on the le ft which is nonspecific though may reflect incidental enostosis given the solitary finding. IMPRESSION: 1. There is no clear CT evidence of acute fracture involving the cervical spine.. 2. There are multilevel degenerative changes involving the cervical spine as detailed above. The find ings appear to include a right paracentral disc protrusion at C4-5 which mildly deforms the right stephania tral cord Signer Name: Fercho Osborne MD Signed: 10/02/2020 3:56 PM Workstation Name: [id number]
--- NOTE | 2020-10-02 16:04 | Cat Scan Report ---
CT head/brain wo con INDICATION: closed head injury with LOC. TECHNIQUE: Routine CT head. All CT scans at this location are performed using CT dose reduction for A MALKA by means of automated exposure control. COMPARISON: None. FINDINGS: Intracranial: Meyer-white matter differentiation is maintained. No intracranial hemorrhage. No extra a xial collection. No hydrocephalus. No herniation. Sinuses: Paranasal sinuses and mastoid air cells are essentially clear. Orbits: Globes are intact. Calvarium: No acute fracture. IMPRESSION: 1. No acute intracranial abnormality. Signer Name: Art Jamil MD Signed: 10/02/2020 3:59 PM Workstation Name: [id number]
[2020-10-02 17:03] LABS: Bilirubin,Urine NEG (Negative); Blood,Urine NEG (Negative); Color,Urine Colorless (Yellow); Protein,Urine <15 mg/dL mg/dL (Negative); Urobilinogen,Urine < 2.0 mg/dL (<2.0)
[2020-10-02 17:08] LABS: Amphetamine Screen,Urine Negative; Cannabinoid Screen,Urine Negative; Cocaine Screen,Urine Negative; Methadone Screen,Urine Negative; Opiate Screen,Urine Negative
[2020-10-02 17:30] LABS: Benzodiazepines Screen,Urine Positive
--- NOTE | 2020-10-02 18:01 | Emergency Department Report ---
ED General Adult HPI - General Chief complaint: Fall Stated complaint: FLL Time Seen by Provider: 10/02/20 14:48 Source: patient, EMS Mode of arrival: Stretcher Limitations: No Limitations - History of Present Illness Initial comments: Patient presents to the emergency department via EMS for a fall. Patient states that she stood in the chair try to reach something in her home when she fell from the chair. Patient states that due to the fall she hit her head and passed out. Patient complains of a headache as throbbing in nature as well as neck keven n. She denies any abdominal pain or shortness of breath or chest pain. -: Sudden Location: head, neck Severity scale (0 -10): 3 Quality: sharp Consistency: constant Improves with: rest Worsens with: movement Associated Symptoms: denies other symptoms Treatments Prior to Arrival: none - Related Data Home Medications Medication Instructions Recorded Confirmed Last Taken ALPRAZolam [Xanax TAB] 2 mg PO QHS 12/09/17 12/16/17 12/15/17 20:00 Diphenoxylate/Atropine [Lomotil] 1 tab PO Q4H PRN 12/09/17 12/09/17 Unknown Omeprazole 40 mg PO DAILY 12/09/17 12/16/17 12/16/17 04:00 Ondansetron [Zofran TAB] 4 mg PO Q8HR PRN 12/09/17 12/09/17 Unknown Propranolol HCl 20 mg PO DAILY 12/09/17 12/16/17 12/16/17 04:00 Sertraline [Zoloft] 100 mg PO QDAY 12/09/17 12/16/17 12/15/17 09:00 oxyCODONE /ACETAMINOPHEN [Percocet 1 tab PO Q6HR PRN 12/09/17 12/09/17 Unknown 5/325] Allergies Allergy/AdvReac Type Severity Reaction Status Date / Time acetaminophen [From Tylenol] Allergy Swelling Verified 10/01/18 08:50 heparin Allergy Anaphylaxis Verified 10/01/18 08:50 levofloxacin [From Levaquin] Allergy Unknown Verified 10/01/18 08:50 NSAIDS (Non-Steroidal Allergy Rash Verified 10/01/18 08:50 Anti-Inflamma naproxen AdvReac Nausea Verified 10/01/18 08:50 tramadol AdvReac Headache Verified 10/01/18 08:50 ADVIL Allergy Rash Uncoded 12/09/17 15:10 ED Review of Systems ROS: Stated complaint: FLL Other details as noted in HPI Comment: All other systems reviewed and negative Constitutional: denies: chills, fever Eyes: denies: eye pain, eye discharge, vision change ENT: denies: ear pain, throat pain Respiratory: denies: cough, shortness of breath, wheezing Cardiovascular: denies: chest pain, palpitations Endocrine: no symptoms reported Gastrointestinal: denies: abdominal pain, nausea, diarrhea Genitourinary: denies: urgency, dysuria, discharge Musculoskeletal: denies: back pain, joint swelling, arthralgia Skin: denies: rash, lesions Neurological: headache. denies: weakness, paresthesias Psychiatric: denies: anxiety, depression Hematological/Lymphatic: denies: easy bleeding, easy bruising ED Past Medical Hx - Past Medical History Hx Hypertension: Yes Hx Diabetes: No Hx Liver Disease: Yes (hepatocellular carcinoma) Hx Renal Disease: Yes (Acute renal failure in 2008 04/ Drug/ETOH abuse, resolved) Hx Seizures: No Hx Psychiatric Treatment: Yes (SUICIDAL 2013.) Hx Asthma: No Hx COPD: No (Pt denies) Hx Tuberculosis: No Hx HIV: No Additional medical history: hep b, liver failiure - Surgical History Hx Cholecystectomy: Yes Hx Breast Surgery: Yes (RIGHT STEREOTACTIC BX W/ CLIP PLACEMENT 01-08-15) Additional Surgical History: 2011 [facility]STAR MONTANEZ ESOPHAGEAL SGX. - Social History Smoking Status: Former Smoker - Medications Home Medications: Home Medications Medication Instructions Recorded Confirmed Last Taken Type ALPRAZolam [Xanax TAB] 2 mg PO QHS 12/09/17 12/16/17 12/15/17 20:00 History Diphenoxylate/Atropine [Lomotil] 1 tab PO Q4H PRN 12/09/17 12/09/17 Unknown History Omeprazole 40 mg PO DAILY 12/09/17 12/16/17 12/16/17 04:00 History Ondansetron [Zofran TAB] 4 mg PO Q8HR PRN 12/09/17 12/09/17 Unknown History Propranolol HCl 20 mg PO DAILY 12/09/17 12/16/17 12/16/17 04:00 History Sertraline [Zoloft] 100 mg PO QDAY 12/09/17 12/16/17 12/15/17 09:00 History oxyCODONE /ACETAMINOPHEN [Percocet 1 tab PO Q6HR PRN 12/09/17 12/09/17 Unknown History 5/] ED Physical Exam - General Limitations: No Limitations General appearance: alert, in no apparent distress - Head Head exam: Present: atraumatic, normocephalic - Eye Eye exam: Present: normal appearance, PERRL, EOMI - ENT ENT exam: Present: mucous membranes moist - Neck Neck exam: Present: other (Midline tenderness to palpation of the C-spine) - Respiratory Respiratory exam: Present: normal lung sounds bilaterally. Absent: respiratory distress - Cardiovascular Cardiovascular Exam: Present: regular rate, normal rhythm. Absent: systolic murmur, diastolic murmur, rubs, gallop - GI/Abdominal GI/Abdominal exam: Present: soft, normal bowel sounds. Absent: distended, tenderness - Extremities Exam Extremities exam: Present: normal inspection - Back Exam Back exam: Present: normal inspection - Neurological Exam Neurological exam: Present: alert, oriented X3 - Psychiatric Psychiatric exam: Present: normal affect, normal mood - Skin Skin exam: Present: warm, dry, intact, normal color. Absent: rash ED Medical Decision Making - Lab Data Result diagrams: 10/02/20 15:02 10/02/20 15:02 Lab Results 10/02/20 10/02/20 10/02/20 Range/Units 15:02 15:02 15:02 WBC 3.0 L (4.5-11.0) K/mm3 RBC 3.36 L (3.65-5.03) M/mm3 Hgb 11.1 (10.1-14.3) gm/dl Hct 32.9 (30.3-42.9) % MCV 98 H (79-97) fl MCH 33 H (28-32) pg MCHC 34 (30-34) % RDW 14.8 (13.2-15.2) % Plt Count 147 (140-440) K/mm3 Lymph % (Auto) 48.5 H (13.4-35.0) % [place] % (Auto) 7.8 H (0.0-7.3) % Eos % (Auto) 2.3 (0.0-4.3) % Baso % (Auto) 1.2 (0.0-1.8) % Lymph # (Auto) 1.5 (1.2-5.4) K/mm3 [place] # (Auto) 0.2 (0.0-0.8) K/mm3 Eos # (Auto) 0.1 (0.0-0.4) K/mm3 Baso # (Auto) 0.0 (0.0-0.1) K/mm3 Seg Neutrophils % 40.2 (40.0-70.0) % Seg Neutrophils # 1.2 L (1.8-7.7) K/mm3 Sodium 140 (137-145) mmol/L Potassium 4.5 (3.6-5.0) mmol/L Chloride 105.6 (98-107) mmol/L Carbon Dioxide 24 (22-30) mmol/L Anion Gap 15 mmol/L BUN 16 (7-17) mg/dL Creatinine 0.9 (0.6-1.2) mg/dL Estimated GFR > 60 ml/min BUN/Creatinine Ratio 18 % Glucose 71 (65-100) mg/dL Calcium 9.2 (8.4-10.2) mg/dL Total Bilirubin 0.30 (0.1-1.2) mg/dL AST 44 H (5-40) units/L ALT 26 (7-56) units/L Alkaline Phosphatase 95 (35-129) units/L Total Protein 7.0 (6.3-8.2) g/dL Albumin 4.2 (3.9-5) g/dL Albumin/Globulin Ratio 1.5 % Urine Color (Yellow) Urine Turbidity (Clear) Urine pH (5.0-7.0) Ur Specific [place] (1.003-1.030) Urine Protein (Negative) mg/dL Urine Glucose (UA) (Negative) mg/dL Urine Ketones (Negative) mg/dL Urine Blood (Negative) Urine Nitrite (Negative) Urine Bilirubin (Negative) Urine Urobilinogen (<2.0) mg/dL Ur Leukocyte Esterase (Negative) Urine WBC (Auto) (0.0-6.0) /HPF Urine RBC (Auto) (0.0-6.0) /HPF U Epithel Cells (Auto) (0-13.0) /HPF Salicylates < 0.3 L (2.8-20.0) mg/dL Urine Opiates Screen Urine Methadone Screen Acetaminophen (10.0-30.0) ug/mL Ur Barbiturates Screen Ur Phencyclidine Scrn Ur Amphetamines Screen U Benzodiazepines Scrn Urine Cocaine Screen U Marijuana (THC) Screen Drugs of Abuse Note Plasma/Serum Alcohol (0-0.07) % 10/02/20 10/02/20 10/02/20 Range/Units 15:02 15:44 16:43 WBC (4.5-11.0) K/mm3 RBC (3.65-5.03) M/mm3 Hgb (10.1-14.3) gm/dl Hct (30.3-42.9) % MCV (79-97) fl MCH (28-32) pg MCHC (30-34) % RDW (13.2-15.2) % Plt Count (140-440) K/mm3 Lymph % (Auto) (13.4-35.0) % [place] % (Auto) (0.0-7.3) % Eos % (Auto) (0.0-4.3) % Baso % (Auto) (0.0-1.8) % Lymph # (Auto) (1.2-5.4) K/mm3 [place] # (Auto) (0.0-0.8) K/mm3 Eos # (Auto) (0.0-0.4) K/mm3 Baso # (Auto) (0.0-0.1) K/mm3 Seg Neutrophils % (40.0-70.0) % Seg Neutrophils # (1.8-7.7) K/mm3 Sodium (137-145) mmol/L Potassium (3.6-5.0) mmol/L Chloride (98-107) mmol/L Carbon Dioxide (22-30) mmol/L Anion Gap mmol/L BUN (7-17) mg/dL Creatinine (0.6-1.2) mg/dL Estimated GFR ml/min BUN/Creatinine Ratio % Glucose (65-100) mg/dL Calcium (8.4-10.2) mg/dL Total Bilirubin (0.1-1.2) mg/dL AST (5-40) units/L ALT (7-56) units/L Alkaline Phosphatase (35-129) units/L Total Protein (6.3-8.2) g/dL Albumin (3.9-5) g/dL Albumin/Globulin Ratio % Urine Color Colorless (Yellow) Urine Turbidity Clear (Clear) Urine pH 7.0 (5.0-7.0) Ur Specific [place] 1.008 (1.003-1.030) Urine Protein <15 mg/dl (Negative) mg/dL Urine Glucose (UA) Neg (Negative) mg/dL Urine Ketones Neg (Negative) mg/dL Urine Blood Neg (Negative) Urine Nitrite Neg (Negative) Urine Bilirubin Neg (Negative) Urine Urobilinogen < 2.0 (<2.0) mg/dL Ur Leukocyte Esterase Tr (Negative) Urine WBC (Auto) 1.0 (0.0-6.0) /HPF Urine RBC (Auto) 1.0 (0.0-6.0) /HPF U Epithel Cells (Auto) 2.0 (0-13.0) /HPF Salicylates (2.8-20.0) mg/dL Urine Opiates Screen Urine Methadone Screen Acetaminophen 5.0 L (10.0-30.0) ug/mL Ur Barbiturates Screen Ur Phencyclidine Scrn Ur Amphetamines Screen U Benzodiazepines Scrn Urine Cocaine Screen U Marijuana (THC) Screen Drugs of Abuse Note Plasma/Serum Alcohol 0.03 (0-0.07) % 10/02/20 Range/Units 16:43 WBC (4.5-11.0) K/mm3 RBC (3.65-5.03) M/mm3 Hgb (10.1-14.3) gm/dl Hct (30.3-42.9) % MCV (79-97) fl MCH (28-32) pg MCHC (30-34) % RDW (13.2-15.2) % Plt Count (140-440) K/mm3 Lymph % (Auto) (13.4-35.0) % [place] % (Auto) (0.0-7.3) % Eos % (Auto) (0.0-4.3) % Baso % (Auto) (0.0-1.8) % Lymph # (Auto) (1.2-5.4) K/mm3 [place] # (Auto) (0.0-0.8) K/mm3 Eos # (Auto) (0.0-0.4) K/mm3 Baso # (Auto) (0.0-0.1) K/mm3 Seg Neutrophils % (40.0-70.0) % Seg Neutrophils # (1.8-7.7) K/mm3 Sodium (137-145) mmol/L Potassium (3.6-5.0) mmol/L Chloride (98-107) mmol/L Carbon Dioxide (22-30) mmol/L Anion Gap mmol/L BUN (7-17) mg/dL Creatinine (0.6-1.2) mg/dL Estimated GFR ml/min BUN/Creatinine Ratio % Glucose (65-100) mg/dL Calcium (8.4-10.2) mg/dL Total Bilirubin (0.1-1.2) mg/dL AST (5-40) units/L ALT (7-56) units/L Alkaline Phosphatase (35-129) units/L Total Protein (6.3-8.2) g/dL Albumin (3.9-5) g/dL Albumin/Globulin Ratio % Urine Color (Yellow) Urine Turbidity (Clear) Urine pH (5.0-7.0) Ur Specific [place] (1.003-1.030) Urine Protein (Negative) mg/dL Urine Glucose (UA) (Negative) mg/dL Urine Ketones (Negative) mg/dL Urine Blood (Negative) Urine Nitrite (Negative) Urine Bilirubin (Negative) Urine Urobilinogen (<2.0) mg/dL Ur Leukocyte Esterase (Negative) Urine WBC (Auto) (0.0-6.0) /HPF Urine RBC (Auto) (0.0-6.0) /HPF U Epithel Cells (Auto) (0-13.0) /HPF Salicylates (2.8-20.0) mg/dL Urine Opiates Screen Negative Urine Methadone Screen Negative Acetaminophen (10.0-30.0) ug/mL Ur Barbiturates Screen Negative Ur Phencyclidine Scrn Negative Ur Amphetamines Screen Negative U Benzodiazepines Scrn Positive Urine Cocaine Screen Negative U Marijuana (THC) Screen Negative Drugs of Abuse Note Disclamer Plasma/Serum Alcohol (0-0.07) % - Radiology Data Radiology results: report reviewed - Medical Decision Making Results discussed with patient including findings of cervical spine that are consistent with bony changes in the line Of arthritis Critical care attestation.: If time is entered above; I have spent that time in minutes in the direct care of this critically ill patient, excluding procedure time. ED Disposition Clinical Impression: Closed head injury, Cervical strain, acute Disposition: DC-01 TO HOME OR SELFCARE Is pt being admited?: No Does the pt Need Aspirin: No Condition: Stable Instructions: Cervical Sprain, Head Injury, Adult, [id number] Additional Instructions: Return if worse Referrals: PRIMARY CARE, [Primary Care Provider] - 3-5 Days SARA BONE MD [Staff Physician] - 3-5 Days Time of Disposition: 18:01
[2020-10-02] MEDS ORDERED: ONDANSETRON 4 MG ODT TAB PO ONE (18:23)
[2020-10-02 18:36] VITALS: BP 126/67
== END 2020-10-02 18:38 | disposition home or self-care (01) ==
LOC: ED 13:58
DX: S09.90XA Unspecified injury of head, initial encounter (principal); S16.1XXA Strain of muscle, fascia and tendon at neck level, initial encounter; I10 Essential (primary) hypertension; Z90.49 Acquired absence of other specified parts of digestive tract; Z98.890 Other specified postprocedural states; Z87.891 Personal history of nicotine dependence; Z79.899 Other long term (current) drug therapy; Z88.8 Allergy status to other drugs, medicaments and biological substances; W07.XXXA Fall from chair, initial encounter; Y93.89 Activity, other specified; Y92.89 Other specified places as the place of occurrence of the external cause; Y99.8 Other external cause status
CPT/HCPCS: 36415; 70450; 72125; 80053; 80307; 80320; 81001; 82693; 85025; G0480; Q0162